=== PATIENT | female | born 1990 | race Caucasian/White ===

== ENCOUNTER 2018-09-14 02:50 | Inpatient (IN) | payer OTHER ==
[~2018-09-14] VITALS: Ht 160 cm; Wt 79.9 kg
[2018-09-14 03:13] VITALS: BP 120/72; PULSE 77; RESP 18; Ht 160 cm; Wt 79.9 kg
[2018-09-14] MEDS ORDERED: LACTATED RINGER'S 1,000 ML IV ONE ×2 (04:00→07:58)
[2018-09-14] MEDS ORDERED: LACTATED RINGER'S 1,000 ML IV SCH ×3 (05:00→08:20)
[2018-09-14] MEDS ORDERED: LACT1CAP56 PO (06:44)
[2018-09-14] MEDS ORDERED: PREN-93 PO (06:44)
[2018-09-14] MEDS ORDERED: BENZ28CR TP (06:44)
[2018-09-14] MEDS ORDERED: MISOPROSTOL 200 MCG TAB PR PRN ×3 (07:30→08:30)
[2018-09-14] MEDS ORDERED: METHYLERGONOVINE 0.2 MG INJ IM PRN (07:30)
[2018-09-14] MEDS ORDERED: CEFAZOLIN 2 GM/50 ML (PMX) 50 ML IVPB SCH (07:30)
[2018-09-14] MEDS ORDERED: CARBOPROST 250 MCG INJ IM PRN (07:30)
[2018-09-14] MEDS ORDERED: OXYTOCIN 30 UNITS/LR 500 ML IV PRN (07:30)
--- NOTE | 2018-09-14 07:47 | HP ---
Date/Time of Note Date/Time of Note DATE: 09/14/18 TIME: 07:39 OB - History Hx of Present Free Text/Dictation 27 YO with IUP at 40.2 weeks with EDC 09/12/2018 who reports to L&D in early labor with painful contractions. she initially desired to have TOLAC. Previously on my visit with her at [facility], I had explained to her that I do not offer TOLAC for patients with previous c/s x 2 at [facility] or at [facility]. I made her aware that [facility] allows TOLAC for patients who had 2 previous c/s. [facility] also provided her with the same information. Initially when she came to hospital she desires to have TOLAC and she was debating if she will leave AMA. After d/w providers, she changed her mind and at this time she desires to have repeat delivery. I discussed with the patient the risks, benefits, indications, and alternatives of procedure including but not limited to risks of infection, bleeding, damage to other organs, bowel, bladder, hernia formation, scar formation, possibility of blood transfusion, possible need for emergency hysterectomy. She was allowed to ask questions. All her questions were answered. Informed consent has been obtained. Care: Good Care Ultrasounds: Normal mid trimester US Obstetrical Complications: None Medical Complications: None Past Family/Social History * Past Medical, Surgical, Family and Obstetric Histories reviewed from ch art. OB Admission Exam Vital Signs Vital Signs Vital Signs Date Temp Pulse Resp B/P (MAP) Pulse Ox O2 O2 Flow FiO2 Time Delivery Rate 09/14/18 98.9 77 18 120/72 Room Air 03:13 (88) Physical Exam HEENT: WNL Heart: Rhythm Normal Lungs: Clear, Equal Abdomen: WNL Extremities: Normal Reflexes: Normal Cervical Dilatation: Fingertip Effacement: 50% Station: -2 Membranes: Intact Accelerations: Accelerations Present Last 72 hours Lab Results CBC & BMP 09/14/18 04:43 OB Assessment/Plan Other Assessment: IUP at 40.2 weeks h/o Delivery x 2 Early Labor Desires Repeat Delivery Plan: Section ABA VALLECILLO MD Sep 14, 2018 07:47
[2018-09-14] MEDS ORDERED: NA PHOSPHATE/BIPHOS 133 ML ENEMA PR PRN ×2 (08:00→08:30)
[2018-09-14] MEDS ORDERED: OXYCODONE/ACETAMINOPHEN (5/325) TAB PO PRN ×4 (08:00→08:30)
[2018-09-14] MEDS ORDERED: FAMOTIDINE 20 MG INJ IV ONE (08:00)
[2018-09-14] MEDS ORDERED: METOCLOPRAMIDE 10 MG INJ IV ONE (08:00)
[2018-09-14] MEDS ORDERED: AZITHROMYCIN 500MG/NS (PMX) 250 ML IVPB ONE (08:00)
[2018-09-14] MEDS ORDERED: CITRIC ACID/NA CITRATE 30 ML CUP PO ONE (08:00)
[2018-09-14] MEDS ORDERED: LANOLIN HPA 1 PKT TOP PRN ×2 (08:00→08:30)
--- NOTE | 2018-09-14 08:00 | PREAC ---
Date/Time of Note Date/Time of Note DATE: 09/14/18 TIME: 07:59 Anesthesia Eval and Record Evaluation Time Pre-Procedure Interview DATE: 09/14/18 TIME: 07:59 Age 27 Sex female NPO: 8 hrs Preoperative diagnosis intrauterine Planned procedure repeat c section Past Medical History Past Medical History: Includes : : (4), Para:, Gestational age: (40.2) Surgery & Anesthesia Issues No known issue Meds Anticoagulation: No Beta Shane within 24 hr: No Reason Beta Shane not given: Pt. not on B-Shane Reported Medications Lactobacillus Combo No.11 (Probiotic) 1 Each Cap.sprink, 1 CAP PO DAILY, CAP 09/14/18 Benzoca/Res/Aloe/Vit E/Vit A&D (VAGICAINE CREAM) 28 Gm Cream..g., 28 GM TP 09/14/18 Vit No.124/Iron/FA ( Vitamin Tablet) 1 Each Tablet, 1 EACH PO, TAB 09/14/18 Current Medications Cefazolin Sodium/ Dextrose 50 ml @ 100 mls/hr ONCE IVPB ; Start 09/14/18 at 07:30 Oxytocin/Lactated Ringer's 500 ml @ 0 mls/hr ONCE PRN IV .VAGINAL BLEEDING; Start 09/14/18 at 07:30 Methylergonovine Maleate (Methergine) 0.2 mg ONCE PRN IM .VAGINAL BLEEDING; Start 09/14/18 at 07:30 Carboprost Tromethamine (Hemabate) 250 mcg ONCE PRN IM .VAGINAL BLEEDING; Start 09/14/18 at 07:30 Oxytocin/Lactated Ringer's 500 ml @ 125 mls/hr Q4H IV ; Start 09/14/18 at 08:00 Azithromycin 250 ml @ 250 mls/hr ONCE ONCE IVPB ; Start 09/14/18 at 08:00; Stop 09/14/18 at 08:59 Lactated Ringer's 1,000 ml @ 125 mls/hr Q8H IV ; Start 09/14/18 at 07:50; Stop 09/14/18 at 11:49 Oxycodone/ Acetaminophen (Percocet (5/ 325)) 1 tab Q4H PRN PO .PAIN 4-6; Start 09/14/18 at 08:00 Oxycodone/ Acetaminophen (Percocet (5/ 325)) 2 tab Q4H PRN PO .PAIN 7-10; Start 09/14/18 at 08:00 Ibuprofen (Motrin) 600 mg Q6 PO ; Start 09/14/18 at 12:00 Simethicone (Mylicon) 160 mg Q8H PRN PO .GAS; Start 09/14/18 at 08:00 Senna/Docusate Sodium (Senokot-S) 1 tab BID PO ; Start 09/14/18 at 09:00 Sodium Biphosphate/ Sodium Phosphate (Fleet Enema) 133 ml DAILY PRN NC .CONSTIPATION; Start 09/14/18 at 08:00 Lanolin (Lanolin Hpa) 1 applic BEDSIDE MEDICATION PRN TOP .NIPPLES; Start 09/14/18 at 08:00 Diphtheria/ Tetanus/Acell Pertussis (Adacel) 0.5 ml ONCE ONCE IM* ; Start 09/17/18 at 09:00; Stop 09/17/18 at 09:01 Measles/Mumps/ Rubella Vaccine Live (Mmr Ii Vaccine) 0.5 ml ONCE ONCE SC* ; Start 09/17/18 at 09:00; Stop 09/17/18 at 09:01 Misoprostol (Cytotec) 1,000 mcg ONCE PRN NC .VAGINAL BLEEDING; Start 09/14/18 at 08:00 Meds reviewed: Yes Allergies Coded Allergies: No Known Allergy (Unverified , 09/14/18) Allergies Reviewed: Yes Labs/Studies Labs Reviewed: Reviewed by anesthesiologist Result Diagram: 09/14/18 0443 Laboratory Tests 09/14/18 04:43 Blood Bank Test 09/14/18 07:50 Blood Product Summary Counts test: N/A Pre-procedure Exam Last vitals Vital Signs Date Temp Pulse Resp B/P (MAP) Pulse Ox O2 O2 Flow FiO2 Time Delivery Rate 09/14/18 98.9 77 18 120/72 Room Air 03:13 (88) Airway: Adequate mouth opening, Adequate thyromental dist Mallampati: Mallampati II Teeth: Normal Lung: Normal Heart: Normal ASA Physical Status ASA physical status: 2 Emergency: None Planned Anesthetic Neuraxial: Spinal Planned Pain Management Sub-arachniod narcotics, Parenteral pain med Pre-operative Attestations Prior to commencing anesthesia and surgery, the patient was re-evaluated, there was verification of: *The patient's identity *The results of appropriate recent lab work and preoperative vital signs *The above evaluation not changing prior to induction *Anesthetic plan, risk benefits, alternative and complications discussed with patient/family; questions answered; patient/family understands, accepts and wishes to proceed. BEN FUENTES MD Sep 14, 2018 08:00
[2018-09-14] MEDS ORDERED: morphine SULFATE/PF (10 MG/10 ML) INJ ONE (08:33)
[2018-09-14] MEDS ORDERED: ONDANSETRON 4 MG INJ ONE (08:59)
[2018-09-14] MEDS: SENNA/DOCUSATE NA (8.6MG/50MG) TAB PO SCH ×2 (09:00→21:00)
[2018-09-14] MEDS ORDERED: MEPERIDINE 25 MG INJ IV PRN (09:00)
[2018-09-14] MEDS ORDERED: ONDANSETRON 4 MG INJ IV PRN ×2 (09:00→09:30)
[2018-09-14] MEDS ORDERED: SENNA/DOCUSATE NA (8.6MG/50MG) TAB PO SCH (09:00)
[2018-09-14] MEDS ORDERED: PROCHLORPERAZINE 10 MG INJ IV PRN (09:00)
[2018-09-14] MEDS ORDERED: DIPHENHYDRAMINE 50 MG INJ IV PRN ×2 (09:00→09:30)
[2018-09-14] MEDS ORDERED: HYDROmorphONE 1 MG/5 ML IV SYRINGE IV PRN ×3 (09:00)
[2018-09-14] MEDS ORDERED: FENTAnyl 50 MCG/ML VIAL IV PRN ×3 (09:00)
[2018-09-14] MEDS ORDERED: KETOROLAC 30 MG INJ IV PRN ×2 (09:00→09:30)
[2018-09-14] MEDS ORDERED: PHENYLephrine 10 MG INJ ONE (09:09)
[2018-09-14] MEDS ORDERED: OXYTOCIN 30 UNITS/LR 500 ML IV ONE (09:14)
[2018-09-14] MEDS ORDERED: HYDROmorphONE 0.5 MG/0.5 ML SYG IV PRN ×2 (09:30)
[2018-09-14] MEDS ORDERED: NALOXONE (0.4 MG/ML) INJ IV PRN (09:30)
[2018-09-14] MEDS ORDERED: ZOLPIDEM 5 MG TAB PO PRN (09:30)
[2018-09-14] MEDS ORDERED: NALBUPHINE HCL (10 MG/1 ML) INJ IV PRN (09:30)
--- NOTE | 2018-09-14 09:33 | OPR ---
Date/Time of Note Date/Time of Note DATE: 09/14/18 TIME: 09:29 Operative Report Procedure Date: Sep 14, 2018 Preoperative Diagnosis IUP at 40.2 weeks Desires repeat delivery Postoperative Diagnosis same very thin low uterine segment Operation/Procedure Performed repeat delivery Surgeon Annette Herrera MD Press Washer Beverly Su MD Anesthesia Type: spinal Estimated Blood Loss: other (700) Transfusion none Specimen none Grafts/Implants none Tubes/Drains Ramey Cath Complications none Pt Condition Post Procedure: stable Disposition: PACU Procedure Description The risks, benefits, indications, alternatives of procedure including, but not limited to risk of infection, bleeding, damage to other organs, bowel, bladder, hernia formation, scar formation, possibility of blood transfusions discussed with patient. She was allowed to ask questions. All her questions were answered. Informed consent was obtained. DESCRIPTION OF PROCEDURE: She was taken to the operating room. Spinal anest hesia was induced. She was prepped and draped in the usual sterile fashion. Surgical time out one. Anesthesia was tested to be adequate. With permission from anesthesiologist, a knife was used to make a Pfannenstiel skin incision. The incision was taken down in layers. The fascia was cut, undermined and from the underlying muscle using sharp and blunt dissection. All the bleeders were cauterized. Peritoneum was entered bluntly. The low uterine segment was very thin and amniotic fluid was visualized prior to making uterine incision. A low transverse incision was developed over the uterus. Amniotic fluid was meconium stained and adequate. A viable infant in vertex presentation was delivered without any difficulty. The cord was clamped and cut, handed to awaiting team. Placenta was then delivered. Uterus was exteriorized, wrapped around a moist lap. Inside uterus was cleaned using a dry lap. All residual membranes were removed. The uterine incision was then closed using #1 Monocryl in 2 layers. The uterus was inserted back inside the abdominal cavity. Irrigation was done carefully. Careful evaluation of the uterine incision revealed no further bleeding. The peritoneum and rectus muscles and fascia were evaluated. All bleeders cauterized. Peritoneum was closed using 2-0 Monocryl. At this time, the count was correct. Rectus muscle was reapproximated using 2-0 Monocryl. Rectus fascia was closed using #1 Vicryl. Subcutaneous tissue was cleaned and irrigated. All bleeders cauterized and the skin closed using Insorb. All counts correct. ANNETTE HERRERA MD Sep 14, 2018 09:33
--- NOTE | 2018-09-14 09:46 | PAC ---
Date/Time of Note Date/Time of Note DATE: 09/14/18 TIME: 09:44 Post-Anesthesia Notes Post-Anesthesia Note Last documented vital signs Vital Signs Date Temp Pulse Resp B/P (MAP) Pulse Ox O2 O2 Flow FiO2 Time Delivery Rate 09/14/18 98.9 77 18 120/72 Room Air 03:13 (88) Activity: WNL Respiratory function: WNL Cardiovascular function: WNL Mental status: Baseline Pain reasonably controlled: Yes Hydration appropriate: Yes Nausea/Vomiting absent: Yes Comments BP: 105/78 HR: 80 RR; 15 T: 98 SaO2: 100% BEN FUENTES MD Sep 14, 2018 09:46
[2018-09-14] MEDS: OXYTOCIN 30 UNITS/LR 500 ML IV SCH (10:48)
[2018-09-14] MEDS ORDERED: IBUPROFEN 600 MG TAB PO SCH (12:00)
[2018-09-14 15:45] VITALS: BP 109/58; PULSE 78; RESP 16
[2018-09-14 16:00] VITALS: BP 109/78; RESP 16
[2018-09-14 20:15] VITALS: BP 112/59; PULSE 84; RESP 19
[2018-09-15] MEDS: OXYTOCIN 30 UNITS/LR 500 ML IV SCH (00:11)
[2018-09-15] MEDS: LACTATED RINGER'S 1,000 ML IV SCH ×4 (00:34→08:00)
[2018-09-15 04:00] VITALS: BP 112/74; PULSE 91; RESP 18
[2018-09-15 08:30] VITALS: BP 121/81; PULSE 91; RESP 18
[2018-09-15] MEDS: SENNA/DOCUSATE NA (8.6MG/50MG) TAB PO SCH ×2 (08:50→21:00)
[2018-09-15] MEDS ORDERED: IBUPROFEN 600 MG TAB PO SCH ×2 (12:00→18:00)
--- NOTE | 2018-09-15 13:34 | QN ---
Documentation Comment POD #1 s/p repeat . Pt feels well with good pain management and without difficulty. T= 99 BP 121/81 Fundus firm and at umbilicus. Dressing is intact and dry. Lochia minimal. Ext 1+ edema. WBC 9.3 Hgb 10.9 Plts 189K P: Continue care. ADRIENNE GARCIA MD Sep 15, 2018 13:34
[2018-09-15 15:45] VITALS: BP 118/79; PULSE 76; RESP 18
[2018-09-15] MEDS: IBUPROFEN 800 MG TAB PO SCH ×2 (18:01→23:22)
[2018-09-15 19:50] VITALS: BP 111/74; PULSE 80; RESP 17
[2018-09-16 04:10] VITALS: BP 126/78; PULSE 64; RESP 17
[2018-09-16] MEDS: IBUPROFEN 800 MG TAB PO SCH ×3 (05:24→16:45)
[2018-09-16 07:45] VITALS: BP 114/68; PULSE 67; RESP 15
[2018-09-16] MEDS: SENNA/DOCUSATE NA (8.6MG/50MG) TAB PO SCH (08:47)
--- NOTE | 2018-09-16 12:25 | DS ---
Date/Time of Note Date/Time of Note DATE: 09/16/18 TIME: 12:24 Obstetrical Discharge Record Final Diagnosis Final Diagnosis: Term delivered Section Section: Repeat Complications Augmentation: No Induction: No Rupture of Membranes: No Condition on Discharge Physical Assessment Voiding: Yes Bowel Movement: Yes Breast: Soft, non-tender, Filling Fundus: Firm Abdomen and Incision: soft, appropriate tender. incision is intact without sign of infection Calf Tenderness: No Patient Condition: Good ABA VALLECILLO MD Sep 16, 2018 12:25
[2018-09-16 16:12] VITALS: BP 116/78; PULSE 94; RESP 16
[2018-09-17] MEDS ORDERED: DIPHTH/TET/ACEL PERTUSS (ADULT) 0.5 ML VIAL IM* ONE (09:00)
[2018-09-17] MEDS ORDERED: MEASLES,MUMPS,RUBELLA VACCINE INJ SC* ONE (09:00)
--- NOTE | 2018-09-17 19:20 | DELSUM ---
Delivery Summary A-C Datetime Report Generated by CPN: 09/17/2018 19:19 DELIVERY PERSONNEL Etl Architect: Ordona, May MATERNAL INFORMATION Delivery Anesthesia: Spinal Medications in Delivery: SEE ANESTHESIA RECORD Placenta Cultured: No Maternal Complications: Other Other Maternal Complications: repeat c/section in labor LABOR SUMMARY EDC: 09/12/2018 00:00 No. Babies in Womb: 1 Attempted: No Labor Anesthesia: None LABOR INFORMATION Reason for Induction: Postterm Oxytocin: N/A Group B Beta Strep: Positive Antibiotics # of Doses: 2 Antibiotics Time of Last Dose: 09/14/2018 08:40 Steroids Given: None Reason Steroids Not Administered: Not Applicable MEMBRANES Membranes Rupture Method: Artificial Rupture of Membranes: 09/14/2018 08:55 Length of Rupture (hr): 0.00 Amniotic Fluid Color: Light Meconium Amniotic Fluid Amount: Moderate Amniotic Fluid Odor: None STAGES OF LABOR Stage 3 hr: 0 Stage 3 min: 2 CSECTION DELIVERY Primary Indication: Repeat Elective Secondary Indication: N/A CSection Urgency: Elective CSection Incidence: Repeat Labor: Labor Elective: Nonelective CSection Incision: Lower Uterine Transverse BABY A INFORMATION Infant Delivery Date/Time: 09/14/2018 08:55 Method of Delivery: Born in Route : No : N/A Forceps: N/A Vacuum Extraction: N/A Shoulder Dystocia : N/A SHOULDER DYSTOCIA BABY A Infant Delivery Date/Time: 09/14/2018 08:55 PRESENTATION/POSITION BABY A Presentation: Cephalic Cephalic Presentation: Vertex Vertex Position: Left Occipital Posterior Breech Presentation: N/A PLACENTA INFORMATION BABY A Placenta Delivery Time : 09/14/2018 08:57 Placenta Method of Delivery: Manual Removal Placenta Status: Delivered SCORES BABY A Heart Rate 1 min: >100 bpm Resp Effort 1 min: Good Cry Reflex Irritability 1 min: Cough/Sneeze/Pulls Away Muscle Tone 1 min: Active Motion Color 1 min: Blue/Pale Resuscitation Effort 1 min: Tactile Stimulation; Oxygen; PPV/NCPAP SCORE 1 MIN: 8 Heart Rate 5 min: >100 bpm Resp Effort 5 min: Good Cry Reflex Irritability 5 min: Cough/Sneeze/Pulls Away Muscle Tone 5 min: Active Motion Color 5 min: Blue/Pale Resuscitation Effort 5 min: Tactile Stimulation; Oxygen; PPV/NCPAP SCORE 5 MIN: 8 INFANT INFORMATION BABY A Gestational Age at Delivery: 40.2 Gestational Status: Full Term- 39- 40.6 Weeks Infant Outcome : Liveborn Infant Condition : Stable Sex: Male IDENTIFICATION/MEDS BABY A ID Band Number: [id number] ID Band Location: Right Leg; Left Arm Sensor Applied: Yes Sensor Number: [id number] Sensor Location : Cord Clamp Vitamin K Given : Not Given Erythromycin Given: Not Given WEIGHT/LENGTH BABY A Birthweight (gm): 3690 Infant Weight (lb): 8 Infant Weight (oz): 2 Infant Length (in): 20.50 Length (cm): 52.07 CORD INFORMATION BABY A No. Cord Vessels: 3 Nuchal Cord : N/A Cord Blood Taken: Yes Infant Suction: Mouth; Nose ASSESSMENT BABY A Complications: None Physical Findings at Delivery: Within Normal Limits Infant Respirations: Appears Normal Rod Pointer/ALS Called : No Care By: EMELY/SOUTH Transferred To: Remains with Mother
== END 2018-09-16 17:15 | disposition home or self-care (01) | DRG 788 ==
LOC: OBT 02:50 → L-D 02:50 → OBT 07:41 → L-D 08:28 → PP1 13:01
PROVIDERS: ADMIT Specialist; ATTEND Specialist
PROC: 3E033VJ Introduction of Other Hormone into Peripheral Vein, Percutaneous Approach (ICD-10-PCS; 2018-09-14)
PROC: 10D00Z1 Extraction of Products of Conception, Low, Open Approach (ICD-10-PCS; principal; 2018-09-14 09:00)
DX: O65.5 Obstructed labor due to abnormality of maternal pelvic organs (principal); O34.211 Maternal care for low transverse scar from previous cesarean delivery; O48.0 Post-term pregnancy; Z3A.40 40 weeks gestation of pregnancy; Z37.0 Single live birth
CPT/HCPCS: 36415; 85025; 85610; 85730; 86592; 86850; 86900; 86901; 87340; 96360; 99464; G0463; J0456; J0690; J2274; J2405; J2590; J2765; J7120